=== PATIENT | male | born 1975 | race Caucasian/White ===

== ENCOUNTER 2020-07-05 15:30 | Outpatient (REF) | payer OTHER, SELFPAY ==
[2020-07-05 22:12] LABS: Calculated LDL 125 mg/dL (<100); Cholesterol 199 mg/dL (<200); HDL Cholesterol 61 mg/dL (40-60); Triglyceride 67 mg/dL (<150)
[2020-07-07 12:52] LABS: COVID-19 RT-PCR UVMMC Result Negative (Negative)
== END 2020-07-05 15:31 | disposition home or self-care (01) ==
LOC: NCHCN 15:30
PROVIDERS: PCP Internal Medicine; Visit Provider Internal Medicine
DX: Z13.220 Encounter for screening for lipoid disorders (principal); Z20.822 Contact with and (suspected) exposure to COVID-19
CPT/HCPCS: 80061; U0003

== ENCOUNTER 2022-11-08 10:38 | Outpatient (REF) | payer BC, SELFPAY ==
--- NOTE | 2022-11-08 09:50 | ORMUBX_PTH ---
PATIENT: Jairo Jean LOC: [facility] U#:[id number] AGE/SX: 47/M ROOM: RE11/08/[address]: Rosa Isela Mercado : 1975 BED: DIS: 11/08/2022 SPEC #: [id number] RECD: 11/08/22 16:55 STATUS: RUPESH REQ #: [id number] SUSAN: 11/08/22 09:[address]: Rosa Isela Mercado DEPT: Surgical Specimen RECD BY: Wanda Jimenez ENTERED: 11/08/22 16:55 SP TYPE: ORMUBX OTHR DR: Jairo Ariza Tissues: 1 - MUCOSA, NOS Procedures: GROSS AND MICRO LEVEL 4 Comments: [id number]
== END 2022-11-08 10:39 | disposition home or self-care (01) ==
LOC: LBN 10:38
PROVIDERS: PCP Internal Medicine; Visit Provider Registered Nurse Maternal Newborn
DX: K13.79 Other lesions of oral mucosa (principal); D10.39 Benign neoplasm of other parts of mouth
CPT/HCPCS: 88305

== ENCOUNTER 2023-05-21 09:52 | Day surgery (SDC) | payer OTHER, SELFPAY ==
--- NOTE | 2023-05-20 18:30 | W.PM.DSUDISC ---
Date of service: 05/21/23 Time of Service: 11:23 Discharge Plan Disposition Patient Disposition: Home Condition: Good Discharge Details Reason For Visit: screening colonoscopy Attending Provider: Kuldeep Echols Primary Care Provider: Ava Richards Home Meds and New Rx's Prescriptions: Discontinued polyethylene glycol 3350 17 gram/dose powder 17 g PO ONCE Qty: 238 0RF Rx Instructions: Take per colonoscopy instructions provided by ordering providers office bisacodyl [Dulcolax (bisacodyl)] 5 mg tablet,delayed release (DR/EC) 5 mg PO ONCE Qty: 4 0RF Rx Instructions: Take per colonoscopy instructions provided by ordering providers office Discharge Instructions Instructions: Colorectal Polyps (GEN) Additional Instructions: Team, we are able to complete your colonoscopy today without any difficulty. Your prep was great. I could see things just fine. I did find 2 polyps, which I removed completely. I will send these off for testing, and once I have the results about the nature of the polyps, I will be in touch with recommendations for your next colonoscopy. If you have any questions in the meantime, please do not hesitate to call or ask. 1. If tolerated, consume a soft, low fiber diet for 1-2 days. 2. Do not drive, drink alcohol, operate machinery, make critical decisions, or do activities that require coordination or balance for 24 hours. 3. Because air was put into your colon during the procedure, expelling air from your rectum (passing gas or farting) is normal. 4. You may not have a bowel movement for 1-3 days because of the colonoscopy prep. This is normal. 5. Go directly to the emergency room if you notice any of the following: Develop chills (warm to touch), or if you have a thermometer and your temperature is above 101 Difficulty breathing or difficultly swallowing Persistent vomiting Severe abdominal pain, other than gas cramps Severe chest pain Black, tarry stools Any bleeding ? exceeding one tablespoon 6. Call your physician if the site where your intravenous was started becomes red, swollen, painful, and warm to touch. 7. Your physician has reviewed your pre-procedure medications. Please continue to take those medications as previously ordered. You will be given specific information/education regarding any changes to your medications before leaving. Activity:: Activity as Tolerated Diet:: As Tolerated Discharge Orders Discharge Orders: Discharge Order (Routine); Ordered 05/20/23 Ordered By: Kuldeep Echols DS: Diagnosis Discharge Diagnosis (1) Encounter for screening colonoscopy: Status: Acute Asessment and Plan: Follow-up on polyp results
--- NOTE | 2023-05-20 18:31 | W.COLOREPORT ---
Date of service: 05/21/23 Time of Service: 11:24 Colonoscopy Report Date of procedure: 05/21/23 Pre-op diagnosis general: screening colonoscopy Post-op diagnosis procedure note: other (Colon polyps) Procedure: Colonoscopy with polypectomy Surgeon: Kuldeep Echols Anesthesia Type: General:No Airway Estimated blood loss (mL): 5 Pathology: other (0.25 cm polyp at 55 cm, 0.5 cm polyp at 30 cm) Complications: None Disposition: same day Indications: Roly is a 48 year old man who needs his first screening colonoscopy Prep: Miralax/Dulcolax Procedure Start Time: 10:59 Procedure End Time: 11:18 Retraction Time: 8 Findings: 0.25 cm polyp at 55 cm, 0.5 cm polyp at 30 cm Procedure Description: After the induction of anesthesia, and with the patient in left lateral decubitus position, I began by performing an external anorectal exam.? Perineum and skin were normal, as was the anal verge.? There was no evidence of external hemorrhoids.? Next, I performed a digital rectal exam.? I did not appreciate any abnormal findings.? Next, I advanced a colonoscope into the rectal vault.? I performed retroflexion.? This was normal.? Using insufflation, I then advanced the colonoscope beyond the rectal folds and into the sigmoid colon before advancing towards the cecum.? The scope was noted to be in the cecum by identification of the ileocecal valve and appendiceal orifice.? I then began withdrawing the colonoscope using repeated irrigation as necessary for full evaluation of the colonic mucosa. Around 55 cm from the anal verge I identified a 0.25 cm polyp. ?It appeared flat in character. ?I was able to remove this with a cold forcep polypectomy. ?I examined the site, and there was minimal bleeding. ?Once this was completed, I continued to withdraw the scope and examine the remainder of the colonic mucosa. Similarly, around 30 cm from the anal verge was another polyp. This was about 0.5 cm, and more pedunculated. This was also removed with cold forceps without any issue. Once the scope was withdrawn to the level of the rectum, great care was taken to examine portions of the rectal folds.? Finally, the scope was withdrawn and the patient was brought to the same-day surgery recovery unit as the anesthetic wore off. ?The findings and instructions were shared with the patient prior to discharge. Hastings Bowel Prep Hastings Bowel Prep Right Colon: 3 Left Colon: 3 Transverse Colon: 3 Total Score: 9
[2023-05-21 09:51] VITALS: BP 116/90; PULSE 60; RESP 16; TEMP 36.6; O2SAT 100
[2023-05-21] MEDS: Lactated Ringers 1,000 ML 80 ML IV (10:23)
--- NOTE | 2023-05-21 10:35 | W.ANESPRE ---
General Info Date of Service Date Performed: 05/21/23 Height: 5 ft 8 in Weight: 72.121 kg Body Mass Index (BMI): 24.1 Surgical Procedure: Operation Date: 05/21/23 11:05 Proposed Procedure Side Surgeon rich Echols MD Meds Allergies and Home Medications Allergies Allergy/AdvReac Type Severity Reaction Status Date / Time No Known Allergies Allergy Verified 11/08/22 09:24 Current Visit Medications: Current Medications Generic Name Dose Route Start Last Admin Trade Name Freq PRN Reason Stop Dose Admin Hyoscyamine Sulfate 0.125 mg 05/20/23 18:34 Hyoscyamine 0.125 Mg Sl/Oral/Chew SL 06/19/23 18:33 DIRECTED PRN Ringer's Solution 1,000 mls @ 80 mls/hr 05/21/23 06:00 05/21/23 10:23 IV 06/17/23 23:59 80 mls/hr INFUSION MAXWELL Administration IV Miscellaneous Supplies 1 each 05/21/23 06:00 Iv Access IV 06/17/23 23:59 DIRECTED MAXWELL Ondansetron HCl 4 mg 05/20/23 18:34 Ondansetron 4 Mg/2 Ml Vial IVP 06/19/23 18:33 Q4H PRN PRN Nausea / Vomiting Sodium Chloride 0 ml 05/21/23 06:00 Normal Saline Flush 10 Ml Syr IV 06/17/23 23:59 PRN PRN Sodium Chloride 0 ml 05/21/23 06:00 Normal Saline 10 Ml Vial IJ 06/17/23 23:59 DIRECTED PRN Sterile Water 0 ml 05/21/23 06:00 Water,Injection,Sterile 10 Ml Vial IJ 06/17/23 23:59 DIRECTED PRN PFSH Active Problems Active Problems: Problem Status Onset Code Encounter for screening colonoscopy Z12.11 Oral mucosal lesion K13.70 Genitofemoral neuralgia of left side G58.8 Medical History Medical History (Updated 05/20/23 @ 18:30 by Kuldeep Echols MD) Oral lesion Foot pain Left inguinal pain Insomnia Surgical History Surgical History History of inguinal herniorrhaphy Repair of inguinal hernia (07/18/16) Tobacco Smoking/Tobacco Use Status: Never Alcohol Alcohol Intake: current Alcohol intake frequency: 0-2 drinks per day Substance Use Substance use: Never Vital Signs and Lab Results Vital Signs Most Recent Vital Signs in EMR: Most Recent Vital Signs Temp Pulse Resp BP Pulse Ox 36.6 C 60 16 116/90 100 05/21/23 09:51 05/21/23 09:51 05/21/23 09:51 05/21/23 09:51 05/21/23 09:51 Lab Results Blood Type / Crossmatch: No Data to Display Complete Blood Count: No Data to Display Complete Metabolic Panel: No Data to Display Liver Function Panel: No Data to Display Coagulation Panel: No Data to Display Cardiac Panel: No Data to Display Arterial Blood Gas: No Data to Display Venous Blood Gas: No Data to Display Pancreas Panel: No Data to Display Thyroid Panel: No Data to Display Infectious Disease: No Data to Display Blood Cultures: No Data to Display Toxicology Panel: No Data to Display Anesthesia Assessment and Plan Anesthesia History Personal History: No History of Anesthesia Complications Family History: No Family History of Anesthesia Complications Exercise Tolerance Exercise Tolerance: Metabolic Equivalents>4 Pertinent Negatives Pertinent Negatives: No Symptoms of GERD, No Major Cardiovascular Symptoms or Complaints, No Major Pulmonary Symptoms or Complaints and No History of CVA/TIA Cardiac & Pulmonary Exam Cardiac Exam: Normal S1/S2 Heart Sounds Pulmonary Exam: Clear Bilateral Breath Sounds Implantable Cardiac Device Does patient have a Pacemaker or an ICD?: No Airway Exam Known Difficult Airway: No Mallampati Class: 1 Mouth Opening: Normal (> 3cm) Thyromental Distance: Greater than 3 cm Neck Range of Motion: Full ROM Neck Circumference: Normal Teeth Condition: Normal Dentition ASA Classification ASA Score: ASA 1 Emergency Case?: No NPO Status NPO Status: NPO Clears >2 hours, Solids >8 hours Anesthesia Plan Resuscitation Status: Full Code Anesthesia Technique: General Anesthesia Airway Planned: Natural Airway Monitors Used: Standard Monitors
[2023-05-21 10:38] VITALS: BMI 24.1
--- NOTE | 2023-05-21 11:12 | BOWEL_PTH ---
PATIENT: Jairo Jean LOC: [facility] U#:[id number] AGE/SX: 48/M ROOM: RE05/21/[address]: Kuldeep Echols MD : 1975 BED: DIS: 05/21/2023 SPEC #: [id number] RECD: 05/21/23 13:00 STATUS: RUPESH REKayleen #: [id number] SUSAN: 05/21/23 11:[address]: Kuldeep Echols DEPT: Surgical Specimen RECD BY: Wanda Jimenez ENTERED: 05/21/23 13:01 SP TYPE: Bowel OTHR DR: Ava Richards Tissues: 1 - BIOPSY BOWEL 2 - BIOPSY BOWEL Procedures: GROSS AND MICRO LEVEL 4 Comments: [id number]
[2023-05-21 11:22] VITALS: BP 102/78; PULSE 69; RESP 16; TEMP 36.5; O2SAT 99
[2023-05-21 11:56] VITALS: BP 114/87; PULSE 63; RESP 16; TEMP 36.6; O2SAT 99
--- NOTE | 2023-05-21 12:00 | W.ANESPOSTOP ---
Postoperative Evaluation Date, Time and Location Date Performed: 05/21/23 Time Performed: 11:31 Patient Location: Day Surgery Unit Vital Signs Most Recent Imported Vital Signs: Most Recent Vital Signs Temp Pulse Resp BP Pulse Ox 36.6 C 63 16 114/87 99 05/21/23 11:56 05/21/23 11:56 05/21/23 11:56 05/21/23 11:56 05/21/23 11:56 Pain Score Most Recent Pain Score: Most Recent Pain Score Pain Level 0 05/21/23 11:56 Assessment Mental Status: Awake (Alert & Oriented to Patient Baseline) Airway and Respiratory Function: Patent airway with normal (patient baseline) respiratory exam Cardiovascular Function: Hemodynamically Stable Hydration Status: Adequately Hydrated Nausea & Vomiting: No Nausea or Vomiting Pain: Pt. Denies Any Pain Peripheral Nerve Block: Patient did not receive a nerve block
== END 2023-05-21 09:53 | disposition home or self-care (01) ==
LOC: SUR 09:53
PROVIDERS: PCP Nurse Practitioner Family; Visit Provider Surgery
PROC: 0DJD8ZZ Inspection of Lower Intestinal Tract, Via Natural or Artificial Opening Endoscopic (ICD-10-PCS; CPT 45378; principal; 2023-05-21 11:00)
DX: Z12.11 Encounter for screening for malignant neoplasm of colon (principal); D12.5 Benign neoplasm of sigmoid colon
CPT/HCPCS: 45380; 88305; J2001; J2704

== ENCOUNTER 2023-07-03 13:32 | Outpatient (REF) | payer OTHER, SELFPAY ==
[2023-07-03 15:01] LABS: Calculated LDL 150 mg/dL (<100); Cholesterol 226 mg/dL (<200); Glucose 96 mg/dL (74-106); HDL Cholesterol 66 mg/dL (40-60); Triglyceride 50 mg/dL (<150)
[2023-07-04 00:17] LABS: PSA, Diagnostic 0.6 ng/mL (<=2.5)
== END 2023-07-03 13:33 | disposition home or self-care (01) ==
LOC: NCHCN 13:32
PROVIDERS: PCP Nurse Practitioner Family; Visit Provider Nurse Practitioner Family
DX: Z00.00 Encounter for general adult medical examination without abnormal findings (principal); Z13.220 Encounter for screening for lipoid disorders
CPT/HCPCS: 80061; 82947; 84153

== ENCOUNTER 2025-02-27 06:21 | Day surgery (SDC) | payer BC, SELFPAY ==
--- NOTE | 2025-02-26 17:51 | W.ANESPRE ---
General Info Date of Service Date Performed: 02/27/25 Height: 5 ft 10 in Weight: 72.575 kg Body Mass Index (BMI): 22.9 Surgical Procedure: Operation Date: 02/27/25 07:40 Proposed Procedure Side Surgeon p Herniorrhaphy Inguinal Right Marina Foley MD Meds Allergies and Home Medications Allergies Allergy/AdvReac Type Severity Reaction Status Date / Time No Known Allergies Allergy Verified 02/27/25 06:47 Home Medication ?Medication ?Instructions ?Recorded Unknown [No Known Home Meds] 02/09/25 Current Visit Medications: Current Medications Generic Name Dose Route Start Last Admin Trade Name Freq PRN Reason Stop Dose Admin Ringer's Solution 1,000 mls @ 80 mls/hr 02/27/25 06:00 IV 02/27/25 23:59 INFUSION MAXWELL Cefazolin Sodium/Dextrose 2 gm in 50 mls @ 100 mls/hr 02/27/25 06:00 Ancef Duplex IVPB 02/27/25 23:59 PREOP MAXWELL Sodium Chloride 0 ml 02/27/25 06:00 Normal Saline Flush 10 Ml Syr IV 02/27/25 23:59 PRN PRN Sodium Chloride 0 ml 02/27/25 06:00 Normal Saline 10 Ml Vial IJ 02/27/25 23:59 DIRECTED PRN Sterile Water 0 ml 02/27/25 06:00 Water,Injection,Sterile 10 Ml Vial IJ 02/27/25 23:59 DIRECTED PRN PFSH Active Problems Active Problems: Problem Status Onset Code Nonulcer dyspepsia Acute K30 Right inguinal hernia Acute K40.90 Encounter for screening colonoscopy Acute Z12.11 Oral mucosal lesion Acute K13.70 Genitofemoral neuralgia of left side Acute G58.8 Medical History Medical History Paresthesia of hand, bilateral Snoring Hyperlipidemia Tubular adenoma of colon (~05/2023) Oral lesion Foot pain Left inguinal pain Insomnia Surgical History Surgical History History of colonoscopy History of inguinal herniorrhaphy left side Repair of inguinal hernia (07/18/16) Tobacco Smoking/Tobacco Use Status: Current-Occasional Tobacco Type: cigars Alcohol Alcohol Intake: current Alcohol intake frequency: 0-2 drinks per day Substance Use Substance use: Never Vital Signs and Lab Results Vital Signs Most Recent Vital Signs in EMR: Temp Pulse Resp BP Pulse Ox 36.3 C L 61 18 104/77 99 02/27/25 06:52 02/27/25 06:52 02/27/25 06:52 02/27/25 06:52 02/27/25 06:52 Anesthesia Assessment and Plan Anesthesia History Personal History: No History of Anesthesia Complications Family History: No Family History of Anesthesia Complications Exercise Tolerance Exercise Tolerance: Metabolic Equivalents>4 Cardiac & Pulmonary Exam Cardiac Exam: Normal S1/S2 Heart Sounds Pulmonary Exam: Clear Bilateral Breath Sounds Implantable Cardiac Device Does patient have a Pacemaker or an ICD?: No Airway Exam Known Difficult Airway: No Mallampati Class: 1 Mouth Opening: Normal (> 3cm) Thyromental Distance: Greater than 3 cm Neck Range of Motion: Full ROM Neck Circumference: Normal Teeth Condition: Normal Dentition ASA Classification ASA Score: ASA 2 Emergency Case?: No NPO Status NPO Status: NPO Clears >2 hours, Solids >8 hours Anesthesia Plan Resuscitation Status: Full Code Anesthesia Technique: General Anesthesia Airway Planned: LMA Monitors Used: Standard Monitors Preoperative Comments:: 49 yo for open inguinal hernia repair. Sig PMHx: shoulder/arm numbness, left inguinal pain/genitofemoral neuralgia. No home meds. Denies GERD. Approp NPO. Occ cigar, occ EtOH. Previous Anes: - colo, prop, natural airway, no issues. - hernia, fent, sevo, LMA 4, no issues.
[2025-02-27] VITALS (17 sets, daily range): BP systolic 97–106; BP diastolic 61–78; PULSE 52–61; RESP 12–18; TEMP 36.1–36.5; O2SAT 97–100; BMI 22.9
[2025-02-27] MEDS: Lactated Ringers 1,000 ML 80 ML IV (07:10)
[2025-02-27] MEDS: ceFAZolin 2 GM/50 ML BAG IVPB (07:35)
[2025-02-27] MEDS: Bupivacaine 0.5% Pres-Free W/EPI 30 ML VIAL (07:54)
--- NOTE | 2025-02-27 08:48 | W.PM.DSUDISC ---
Date of service: 02/27/25 Discharge Plan Disposition Patient Disposition: Home Condition: Good Discharge Details Reason For Visit: Right inguinal hernia Attending Provider: Marina Foley Primary Care Provider: Ava Richards Recommendations for Follow Up Recommended tests to be ordered by follow up provider: None. Home Meds and New Rx's Prescriptions: No Action No Known Home Meds Discharge Instructions Instructions: Groin Hernia Repair (DC) Additional Instructions: Your procedure went well today. Postoperative you should avoid heavy lifting greater than 15-20 for 4-6 weeks. No bending or twisting. For pain control postoperatively you can use Tylenol and ibuprofen (if tolerated). You can also apply ice to your incision. A prescription for oxycodone was sent to your pharmacy to use as needed. If you are using this pain medicine I would recommend using a stool softner to avoid constipation. You may shower in 48hrs and allow warm soapy water to run over your incision. Do not rub the incision. Pat the incision dry after showering. You have skin glue and steri-strips (white bandaid strips) over your incision. These will peel off on their own in 10-14 days. Do not remove them prior to this. Please follow up in the surgery clinic as previously scheduled. If you have any questions or concerns please contact the surgery office. Stand Alone Forms: Anesthesia Discharge Inst., Zulay Smith (DSU), Portal Information Referrals: Marina Foley MD [ [facility] STAFF PHYSICIAN, Surgery] - 03/09/25 8:30 am Activity:: No heavy lifting >15-20lbs. No bending or twisting Shower/Bathe:: 48 hours Diet:: As Tolerated Discharge Orders Discharge Orders: Discharge Order (Routine); Ordered 02/27/25 Ordered By: Marina Foley
--- NOTE | 2025-02-27 09:02 | W.PM.OP ---
Operative Note Operative Note PRE-OP DIAGNOSIS: Right inguinal hernia POST-OP DIAGNOSIS: same PROCEDURE: Open right inguinal hernia repair SURGEON: Marina Foley GLASS WASHER AND CARRIER: Krysten Camilo ANESTHESIA TYPE: Local By Surgeon and General LMA/ETT Refer to Anesthesia Record ESTIMATED BLOOD LOSS: 5 PATHOLOGY: none sent COMPLICATIONS: None Patient was transported to: PACU Patient's condition: stable Indications: Patient is a 49 yo male with history of prior left inguinal hernia repair who presented to clinic with right inguinal pain and bulge. On exam he had a reducible right inguinal hernia. An open right inguinal hernia repair with mesh was discussed with him as well as the postoperative recovery. The risks and benefits were discussed and consent was obtained prior to the procedure. Findings: Indirect right inguinal hernia sac identified and high ligation performed. Mesh placed to reinforce the inguinal floor. Hemostasis achieved and incision closed in layers. Procedure Description: After induction of anesthesia and a surgical safety checklist performed, the right groin was prepped and draped in the usual sterile fashion.??The skin and subcutaneous tissue overlying the right inguinal ligament was then infiltrated with local anesthesia.??An incision was then made following the skin lines and was taken down through the skin and subcutaneous tissue.??The superficial epigastric vessels were doubly ligated and divided.??Clemente fascia was incised.??The external oblique aponeurosis was seen.??It was then opened up in the direction of its fibers through the external ring. We then dissected the floor of the inguinal canal and we could see an indirect hernia.??We dissected this back to the internal ring.??There was preperitoneal fat which was dissected back to the internal ring and ligated and tied with 2-0 Vicryl tie.?The hernia sac was then seen.??It was dissected back to the internal ring.??It was opened.??There was no evidence of a sliding hernia.??The hernia sac was then highly ligated with a 2-0 Vicryl stitch.??The hernia then reduced back to the internal ring. An onlay patch was then fashioned with a mesh.??It was laid over the floor of the inguinal canal.??The mesh was tacked to the pubic tubercle with 2-0 Prolene suture.??It was tacked to the conjoined tendon with interrupted 2-0 Prolene suture.??It was sutured to the shelving edge of the inguinal ligament with interrupted 2-0 Prolene sutures.??Repair appeared adequate.??The inguinal canal which was reconstructed by reapproximating the external oblique aponeurosis with a running 2-0 Vicryl suture.??The fascia and subcutaneous tissue was infiltrated with local anesthesia.??Clemente fascia was reapproximated with 3 interrupted 2-0 Vicryl sutures.??The deep dermis was reapproximated with 3-0 Vicryl suture and the skin was closed with subcuticular stitch of 4-0 Monocryl.??Dermabond and steri-strips were used to cover the incision.?? At this point, the patient was awoken, extubated and transported to the recovery room in stable condition. ?Sponge and instrument counts were correct. Date of Procedure: 02/27/25
--- NOTE | 2025-02-27 09:09 | W.ANESPOSTOP ---
Postoperative Evaluation Date, Time and Location Date Performed: 02/27/25 Time Performed: 09:09 Patient Location: PACU Vital Signs Most Recent Imported Vital Signs: Most Recent Vital Signs Temp Pulse Resp BP Pulse Ox 36.5 C 61 18 104/77 99 02/27/25 08:58 02/27/25 06:52 02/27/25 06:52 02/27/25 06:52 02/27/25 06:52 Pain Score Most Recent Pain Score: Most Recent Pain Score Pain Level 0 02/27/25 06:52 Assessment Mental Status: Awake (Alert & Oriented to Patient Baseline) Airway and Respiratory Function: Patent airway with normal (patient baseline) respiratory exam Cardiovascular Function: Hemodynamically Stable (vitals review. ) Hydration Status: Adequately Hydrated Nausea & Vomiting: No Nausea or Vomiting Pain: Pt. Denies Any Pain Peripheral Nerve Block: Patient did not receive a nerve block
[2025-02-27] MEDS: oxyCODONE 5 MG TAB PO (10:00)
== END 2025-02-27 10:57 | disposition home or self-care (01) ==
PROVIDERS: PCP Nurse Practitioner Family; Visit Provider Student in an Organized Health Care Education/Training Program
PROC: (CPT 49505; principal; 2025-02-27 07:30)
DX: K40.90 Unilateral inguinal hernia, without obstruction or gangrene, not specified as recurrent (principal)
CPT/HCPCS: 49505; C1781; J0131; J0690; J1100; J1885; J2371; J2405; J2704; J3010; J3475